=== PATIENT | female | born 1985 | race Caucasian/White ===

== ENCOUNTER 2018-06-05 03:05 | Emergency (ER) | payer OTHER ==
[2018-06-05] MEDS ORDERED: traMADol HCl 50 MG TAB ONE (03:30)
[2018-06-05] MEDS ORDERED: methylPREDNISolone Acetate 40 mg/ml Vial ONE (03:30)
== END 2018-06-05 03:58 | disposition home or self-care (01) ==
LOC: NAV ERS 03:05
DX: T78.40XA Allergy, unspecified, initial encounter (principal); F41.9 Anxiety disorder, unspecified; F32.9 Major depressive disorder, single episode, unspecified; Z79.899 Other long term (current) drug therapy
CPT/HCPCS: 94640; 96372; J1030; J7620